=== PATIENT | female | born 1995 | race Hispanic/Latino ===

== ENCOUNTER 2017-02-14 17:47 | Emergency (ER) | payer BC ==
[2017-02-14 18:02] VITALS: BP 149/85; PULSE 88; RESP 16; TEMP 98; O2SAT 100
--- NOTE | 2017-02-14 19:08 | ED PDOC ---
Lower Extremity Pain/Injury Time Seen by Provider: 02/14/17 18:30 Chief Complaint (Nursing): Lower Extremity Problem/Injury Chief Complaint (Provider): Right knee pain History Per: Patient History/Exam Limitations: no limitations Onset/Duration Of Symptoms: Days (yesterday ) Current Symptoms Are (Timing): Still Present Additional Complaint(s): Pt states she was running to first base during softball yesterday when she felt a crack/poop on the side of her right knee. Pt states she now has some swelling and pain inferior to the patella. No knee problems/injuries in the past. PT took motrin for pain this morning and does not want any. No fever/chills. No numbness/tingling. Past Medical History Reviewed: Historical Data, Nursing Documentation, Vital Signs Vital Signs: Last Vital Signs Temp 98.0 F 02/14/17 17:59 Pulse 88 02/14/17 17:59 Resp 16 02/14/17 17:59 BP 149/85 02/14/17 17:59 Pulse Ox 100 02/14/17 17:59 - Medical History PMH: No Chronic Diseases - Surgical History Surgical History: No Surg Hx - Family History Family History: States: Unknown Family Hx - Social History Current smoker - smoking cessation education provided: No Alcohol: None Drugs: Denies - Allergies Allergies/Adverse Reactions: Allergies Allergy/AdvReac Type Severity Reaction Status Date / Time No Known Allergies Allergy Verified 02/14/17 17:59 Review of Systems ROS Statement: Except As Marked, All Systems Reviewed And Found Negative Musculoskeletal: Positive for: Other (Right knee pain ) Physical Exam - Reviewed Nursing Documentation Reviewed: Yes Vital Signs Reviewed: Yes - Physical Exam Appears: Positive for: Well, Non-toxic, No Acute Distress Head Exam: Positive for: ATRAUMATIC, NORMAL INSPECTION, NORMOCEPHALIC Skin: Positive for: Normal Color, Warm, DRY Eye Exam: Positive for: Normal appearance ENT: Positive for: Normal ENT Inspection Neck: Positive for: Normal, Painless ROM Respiratory: Negative for: Accessory Muscle Use Back: Positive for: Normal Inspection Extremity: Positive for: Normal ROM, Swelling (Mild ), Other ((-) anterior/ posterior drawer, (-) Juan Carlos's ). Negative for: Tenderness, Deformity Neurologic/Psych: Positive for: Alert - ECG O2 Sat by Pulse Oximetry: 100 Medical Decision Making Medical Decision Making: x-ray normal Copy of x-ray given to patient. Disposition - Clinical Impression Clinical Impression: Knee injury - Patient ED Disposition Is Patient to be Admitted: No Counseled Patient/Family Regarding: Diagnosis, Need For Followup - Disposition Referrals: Donal Root MD [Staff Provider] - Disposition: Routine/Home Disposition Time: 19:10 Condition: GOOD Additional Instructions: Ice, elevation, motrin for pain. Instructions: Swollen Knee Joint (ED)
--- NOTE | 2017-02-15 11:10 | RAD ---
PROCEDURE: Right Knee Radiographs. HISTORY: injury, pain COMPARISON: None. FINDINGS: BONES: Normal. No fracture. JOINTS: Normal. No osteoarthritis. JOINT EFFUSION: None. OTHER FINDINGS: None. IMPRESSION: No evidence of acute displaced fracture nor dislocation.
== END 2017-02-14 19:27 | disposition home or self-care (01) ==
LOC: H.ER 17:47
DX: S89.91XA Unspecified injury of right lower leg, initial encounter (principal); W19.XXXA Unspecified fall, initial encounter; Y92.89 Other specified places as the place of occurrence of the external cause